=== PATIENT | female | born 1970 | race Caucasian/White ===

== ENCOUNTER → 2018-05-07 | Outpatient (CLI) | payer BC | END | disposition home or self-care (01) | LOC: PLD 08:46 → LAB SHORT 08:46 | DX: N92.0 Excessive and frequent menstruation with regular cycle (principal) | CPT/HCPCS: 88305 ==

== ENCOUNTER → 2020-10-05 | Outpatient (CLI) | payer BC ==
[~2020-10-05] MED LIST: CETI5 PO; FLONASE ALLERG9.9 ML INH; Hair, Skin & N1 EACH PO; IBU800 M1 PO; LISI5 PO; MAGCHL64ER PO; Percocet 5-3251 EACH PO; VITAMIN D35000 UNIT PO
[2020-10-06 15:10] LABS: HPV 16 Negative (Negative); HPV 18 Negative (Negative); HPV OTHER HR TYPES Negative (Negative)
== END | disposition home or self-care (01) ==
LOC: LAB SHORT 15:00 → LAB 15:00
PROVIDERS: Obstetrics & Gynecology
DX: Z12.4 Encounter for screening for malignant neoplasm of cervix (principal)
CPT/HCPCS: 87624; G0123

== ENCOUNTER 2020-11-25 06:38 | Day surgery (SDC) | payer BC ==
[~2020-11-25] VITALS: Ht 175.3 cm; Wt 80.6 kg
[~2020-11-25 06:38] MED LIST changes: -IBU800 M1 PO; -Percocet 5-3251 EACH PO
--- NOTE | 2020-11-25 11:10 | NUR ---
IS at bedside, pt instructed how to use,
[2020-11-25] MEDS ORDERED: IBU800 M1 PO (11:20)
[2020-11-25] MEDS ORDERED: Percocet 5-3251 EACH PO (11:21)
--- NOTE | 2020-11-25 11:31 | NUR ---
PT TOLERATING ORAL FLUIDS WELL, KIM DCD, IV SL. PT WAS MEDICATED WITH 1 HYDROCODONE AND PLANS TO REST
--- NOTE | 2020-11-25 12:13 | NUR ---
AMBULATION UP OUT OF BED. TOLERATED WELL. FIRST VOID. NO COMPLAINTS. PLAN TO DC HOME IN A FEW HOURS
--- NOTE | 2020-11-25 14:22 | NUR ---
DISCHARGE DISCHARGED HOME STABLE. AMBULATED DOWN [place] AND THEN WHEELCHAIR TO CAR. PICKED UP BY HER . PT STATES SHE REALLY FEELS GREAT. VERBALIZES UNDERSTANDING OF DC INSTRUCTIONS AND FOLLOW UP APPOINTMENTS. NO QUESTIONS OR CONCERNS.
== END 2020-11-25 14:00 | disposition home or self-care (01) ==
LOC: ORSCMMR 06:38 → ORD 07:30 → BC 10:29 → ORSCMMR 14:00 → BC 14:00
PROVIDERS: Obstetrics & Gynecology
PROC: 0UT7FZZ Resection of Bilateral Fallopian Tubes, Via Natural or Artificial Opening With Percutaneous Endoscopic Assistance (ICD-10-PCS; principal; 2020-11-25 07:30)
PROC: 0UT9FZZ Resection of Uterus, Via Natural or Artificial Opening With Percutaneous Endoscopic Assistance (ICD-10-PCS; principal; 2020-11-25 07:30)
DX: D25.1 Intramural leiomyoma of uterus (principal); R10.2 Pelvic and perineal pain; N92.0 Excessive and frequent menstruation with regular cycle; I10 Essential (primary) hypertension; Z79.899 Other long term (current) drug therapy
CPT/HCPCS: 88307; A9270; J0171; J0690; J1100; J1885; J2250; J2405; J2704; J2765; J3010; J7120

== ENCOUNTER 2024-04-17 08:49 | Day surgery (SDC) | payer OTHER ==
[~2024-04-17] VITALS: Ht 172.7 cm; Wt 83.6 kg
[~2024-04-17 08:49] MED LIST changes: +IBU800 M1 PO; +Lactated Ringer's 1,000 ML IV ONE; +Percocet 5-3251 EACH PO
[2024-04-17] MEDS ORDERED: MAGCIT300 (09:16)
[2024-04-17] MEDS ORDERED: ZYRTEC10 M2 (09:16)
[2024-04-17] MEDS ORDERED: PROG100 (09:16)
[2024-04-17] MEDS ORDERED: ERGO400 (09:17)
[2024-04-17] MEDS ORDERED: Lactated Ringer's 1,000 ML IV ONE ×2 (09:37→12:03)
[2024-04-17] MEDS ORDERED: propofoL 40 ML IV ONE (10:31)
[2024-04-17] MEDS ORDERED: Midazolam HCl 1MG / ML 2ML Vial ONE (10:31)
[2024-04-17] MEDS ORDERED: HYDROmorphone HCl/Pf 1MG SYR ONE (10:31)
[2024-04-17] MEDS ORDERED: Lidocaine 1%-Epineph 1:200000 30 ML SDV INJ ONE (11:01)
[2024-04-17] MEDS ORDERED: Dexamethasone Sod Phos 10 MG/ML 1ML VIAL ONE (11:59)
[2024-04-17] MEDS ORDERED: SuccINYLCHOLINE Chloride 100 MG/5 ML 5MLSYR ONE (11:59)
[2024-04-17] MEDS ORDERED: ePHEDrine Sulfate 50 MG/ML 1ML Injection ONE (12:00)
[2024-04-17] MEDS ORDERED: Bacitracin Opth Ointment XX ONE (12:21)
[2024-04-17 13:06] VITALS: BP 138/78
--- NOTE | 2024-04-17 13:08 | NUR ---
04/17/24 [id number] Linda Arriola PT IS RESTING IN RECLINER WITH EYES CLOSED AND LEGS ELEVATED. VSS. AT CHAIRSIDE. PT TOLERATING FLUIDS AND SNACKS WELL. PT DENIES NAUSEA. PT STATED PAIN IS 5/10 AND TOLERABLE AT THIS TIME. CALL LIGHT IN REACH.
[2024-04-17] MEDS ORDERED: OxyCODONE HCL 5 MG TAB ONE (13:19)
== END 2024-04-17 13:47 | disposition home or self-care (01) ==
LOC: ORSCSDS 08:49
PROVIDERS: Otolaryngology
PROC: 0GTH0ZZ Resection of Right Thyroid Gland Lobe, Open Approach (ICD-10-PCS; principal; 2024-04-17 10:00)
DX: E04.1 Nontoxic single thyroid nodule (principal); I10 Essential (primary) hypertension; E03.9 Hypothyroidism, unspecified; Z79.899 Other long term (current) drug therapy
CPT/HCPCS: 88307; A9270; J0330; J1100; J1170; J2250; J2704; J7120